=== PATIENT | female | born 1980 | race Caucasian/White ===

== ENCOUNTER 2023-09-30 13:18 | Emergency (ER) | payer SELFPAY ==
[2023-09-30 13:36] VITALS: BP 123/76; PULSE 82; RESP 16; TEMP 36.8; O2SAT 100
--- NOTE | 2023-09-30 13:49 | ED.WOUNDLAC ---
HPI - Wound/Laceration General Chief Complaint: Wound/Laceration Stated Complaint: left hand dog bite Time Seen by Provider: 09/30/23 13:40 Source: patient Mode of arrival: ambulatory Limitations: no limitations History of Present Illness HPI narrative: Monique is a 43-year-old female patient presenting to the clinic today with complaints of a dog bite to the left hand. She reports that she was trying to break up a dog fight at the park prior to arrival and a dog better on the hand. Has puncture wounds over the base of the thumb dorsal and palmar aspect. Tetanus is up-to-date per patient-last 3 years Related Data Allergies Allergy/AdvReac Type Severity Reaction Status Date / Time No Known Allergies Allergy Verified 09/30/23 13:35 Review of Systems Review of Systems: Pertinent positives per HPI. Patient denies any fever, chills, rash, headache, visual changes, dizziness, cough, runny nose, sore throat, shortness of breath, chest pain, palpitations, nausea, vomiting, diarrhea, constipation, abdominal pain, or any urinary issues. PMFSH Comments At the time of my signature, I reviewed and agree with the nursing past medical, surgical, social, and family history. There is no relevant family history pertinent to the patient complaint. Exam Narrative: General: Well-developed, well nourished, in no apparent distress Head: Normocephalic, atraumatic. Cardio: Regular rate and rhythm, s1 and s2 normal, no murmur appreciated. Resp: Clear to auscultation bilaterally, no rhonchi, rales, wheezing or rubs. Integumentary: [place], warm, and dry, intact without lesion, 0.5 cm puncture wound to the dorsal left hand near the base of the left thumb, 0.75 cm puncture wound/laceration to the volar aspect of the left lateral palm Course Course Emergency Course: Portions of this record may have been created with voice recognition software. Level of Care: Express Care Visit Vital Signs Vital signs: Vital Signs Temperature 36.8 C 09/30/23 13:36 Pulse Rate 82 09/30/23 13:36 Respiratory Rate 16 09/30/23 13:36 Blood Pressure 123/76 09/30/23 13:36 Pulse Oximetry 100 09/30/23 13:36 Oxygen Delivery Room Air 09/30/23 13:36 Temperature 36.8 C 09/30/23 13:36 Pulse Rate 82 09/30/23 13:36 Respiratory Rate 16 09/30/23 13:36 Blood Pressure 123/76 09/30/23 13:36 Pulse Oximetry 100 09/30/23 13:36 Oxygen Delivery Room Air 09/30/23 13:36 Vital signs reviewed MDM - Wound/Laceration MDM Narrative Medical decision making narrative: At the time of visit patient is resting comfortably on the exam table. Patient has a dog bite to the left hand. Area was irrigated extensively and cleansed. Steri-Strips were applied to help with wound closure but to allow for drainage. Supportive measures were discussed with patient she voiced understanding the discharge instructions and agrees to treatment plan. Prophylactic prescription for Augmentin was given. Tetanus is up-to-date per patient Differential Diagnosis Differential diagnosis: Likely laceration, abscess, abrasion and avulsion of skin Discharge Plan Discharge Clinical Impression: Dog bite Qualifiers: Encounter type: initial encounter Qualified Code(s): W54.0XXA - Bitten by dog, initial encounter Patient Disposition: Home, Self-Care Condition: Stable Instructions: Antibiotic Form, Animal Bite (ED), Steristrips (ED) Additional Instructions: Tetanus shot updated in the clinic today Take Augmentin as prescribed Steri-Strips applied to the wound to close and allow for drainage Keep area clean and dry Watch for signs and symptoms of infection which include high fever not controlled by Tylenol or Motrin, increase in pain, redness, swelling, purulent discharge, or streaking Prescriptions: New amoxicillin-pot clavulanate 875-125 mg tablet 1 tablet PO Q12H 7 Days Qty: 14 0RF Follow-up/Referrals: PHYSICIAN,[employer] [Primary Care
[2023-09-30] MEDS: TETANUS,DIPHTHERIA,AC PERTUSSIS ADULT (0.5 ML) BOOSTRIX IM (14:04)
--- NOTE | 2023-09-30 14:09 | PC.NURSE ---
1358 steri stip and supplies at bedside.
== END 2023-09-30 14:23 | disposition home or self-care (01) ==
PROVIDERS: Emergency Provider Nurse Practitioner Family
DX: S61.432A Puncture wound without foreign body of left hand, initial encounter (principal); W54.0XXA Bitten by dog, initial encounter; Z23 Encounter for immunization
CPT/HCPCS: 90471; 90715; 99213; G0463